=== PATIENT | female | born 1995 | race Caucasian/White ===

== ENCOUNTER → 2019-06-10 11:19 | Outpatient (CLI) | payer SELFPAY ==
--- NOTE | 2019-06-10 11:29 | US_ITS ---
STUDY: ULTRASOUND TRANSVAGINAL CLINICAL: Female, 23 years old. PRIOR D and amp;C MAY 2018 -- NO RIGHT OVARY/NOT SEEN DURING SX, -- HX ENDOMETRIOSIS -- CONCERNED FOR ENDO SHEDDING TECHNIQUE: Transvaginal COMPARISON: None. FINDINGS: Normal uterine size measuring 7.8 x 4.5 x 3.6 cm. there are no myometrial masses. The myometrium is heterogeneous in echogenicity. Normal endometrial thickness measuring 11 mm. The endometrium is heterogeneous in echogenicity. Scattered small cystic endometrial foci are noted. There is a cervical nabothian cyst. The right ovary was not visualized. Normal left ovary, measuring 4.7 x 4.5 x 3.6 cm. There is a left ovarian cyst measuring 2.5 x 2.7 x 1.9 cm. There is a small amount of free fluid in the cul-de-sac. Polycystic ovary disease: No. US/Transvaginal Non- IMPRESSION: Heterogeneous myometrium and endometrium. There are scattered small cystic endometrial foci. There is a cervical nabothian cyst. The right ovary was not visualized. There is a simple left ovarian cyst measuring 2.5 x 2.7 x 1.9 cm. Electronically Signed: Scott Townsend MD at 22:15 EDT , Service support ,
== END ==
PROVIDERS: PCP Physician Assistant
DX: R10.2 Pelvic and perineal pain (principal); N80.9 Endometriosis, unspecified
CPT/HCPCS: 76830

== ENCOUNTER → 2021-01-19 11:34 | Outpatient (CLI) | payer SELFPAY ==
--- NOTE | 2021-01-19 11:39 | US_ITS ---
STUDY: ULTRASOUND TRANSVAGINAL CLINICAL: Female, 25 years old. ENDOMETRiOSIS, pelvic pain, history of DTC LMP: 01/14/2021 TECHNIQUE: Transvaginal COMPARISON: 06/10/2019 FINDINGS: Normal uterine size measuring 6.8 x 4.2 x 3.6 cm in maximal craniocaudal dimension. There is heterogeneously echogenic regular tissue in the posterior uterus. Normal endometrial thickness measuring 5 mm. 0.7 x 0.4 x 0.5 cm heterogeneous area adjacent to the endometrium. There there is no fluid in the endometrial cavity. No IUD. Normal uterine cervix with a nabothian cyst. Right ovary is surgically absent. Normal left ovary, measuring 4 x 3.7 x 2.2 cm. There are multiple follicles without a dominant cyst. A complex cystic lesion with low-level echoes and nodular component measures 1.8 x 1.6 x 1.2 cm. There is mild free fluid in the pelvis about the left adnexa. Polycystic ovary disease: No. US/Transvaginal Non- IMPRESSION: 1.8 cm complex cystic lesion of the left ovary may represent a hemorrhagic cyst. Heterogeneous echogenic tissue along the posterior uterus may represent endometriosis. 0.7 cm heterogeneous area adjacent atrium may be related to prior DTC. Electronically Signed: Manpreet Kim MD at 6:41 EDT Tel , Service support ,
== END ==
PROVIDERS: PCP Physician Assistant
DX: R10.2 Pelvic and perineal pain (principal); N80.3 Endometriosis of pelvic peritoneum
CPT/HCPCS: 76830

== ENCOUNTER → 2021-09-26 | Outpatient (CLI) | payer SELFPAY ==
--- NOTE | 2021-09-26 13:29 | US_ITS ---
STUDY: ULTRASOUND TRANSVAGINAL CLINICAL: Female, 25 years old. N80.9 Endometriosis, check to see if any cysts have returned. Status post hysterectomy, right oophorectomy, and left popliteal cyst removal. TECHNIQUE: Transvaginal COMPARISON: None. FINDINGS: UTERUS: Surgically absent. OVARIES: Left ovary: 5.2 x 4.3 x 3.6 cm. Complex cystic structure 4.2 x 4 x 3.3 cm with internal echoes. Smaller complex cystic structure 2.1 x 1.2 x 1.6 cm. Vascular flow demonstrated. No findings to suggest ovarian torsion. Right ovary surgically absent. FREE FLUID: None. US/Transvaginal Non- IMPRESSION: Left ovarian complex cysts, largest is 4.2 cm, most likely hemorrhagic cysts. Follow-up imaging recommended to confirm resolution. Status post hysterectomy and right oophorectomy. Electronically Signed: Kirstin Izquierdo MD at 6:00 EDT ,
== END | disposition home or self-care (01) ==
PROVIDERS: PCP Physician Assistant
DX: N80.9 Endometriosis, unspecified (principal)
CPT/HCPCS: 76830

== ENCOUNTER → 2022-01-30 | Outpatient (CLI) | payer SELFPAY ==
--- NOTE | 2022-01-30 10:11 | US_ITS ---
STUDY: ULTRASOUND OF THE FEMALE PELVIS - COMPLETE REASON FOR EXAM: Female, 26 years old. OVARIAN LMP: The patient is status post hysterectomy. TECHNIQUE: Transvaginal TECHNICAL QUALITY: Adequate. COMPARISON: Comparison is made with prior study dated 09/26/2021. FINDINGS: There is evidence of prior hysterectomy. The right ovary is non-visualized. Patient is status post right nephrectomy. The left ovary is visualized. The left ovary measures 5.9 cm x 3.7 cm x 4.6 cm. There is a 3.5 cm x 3.6 cm x 3.6 cm complex solid and cystic mass in the ovary. There is no visualized left adnexal mass or complex lesion. There is normal arterial and normal venous vascularity. There is no fluid in the cul-de-sac. US/Transvaginal Non- IMPRESSION: Status post right oophorectomy and hysterectomy. 3.5 cm x 3.6 cm x 3.6 cm complex solid and cystic mass in the left ovary. Further follow-up recommended. Electronically Signed: Puma Fulton MD at 15:13 EDT ,
== END | disposition home or self-care (01) ==
PROVIDERS: PCP Physician Assistant
DX: N80.8 Other endometriosis (principal); R10.2 Pelvic and perineal pain
CPT/HCPCS: 76830

== ENCOUNTER → 2023-04-26 | Outpatient (CLI) | payer SELFPAY ==
--- NOTE | 2023-04-26 10:20 | US_ITS ---
INDICATION: NONINFLAMMATORY DISORDER OF VAGINA, UNSPECIFIED EXAMINATION: Ultrasound US Transvaginal Non-OB TECHNIQUE: Transabdominal and endovaginal sonographic images of the pelvis. Grayscale, spectral waveform, and color flow Doppler evaluation of the adnexa. COMPARISON: 01/30/2022 ultrasound. FINDINGS: UTERUS: Status post hysterectomy. RIGHT OVARY: Status post right oophorectomy. Small amount of right adnexal free fluid. LEFT OVARY: 2.9 cm complex cystic lesion, similar in appearance as compared to the prior ultrasound although overall size is decreased. Normal vascular flow demonstrated with color and pulsed-wave Doppler. FREE FLUID: No significant free fluid. US/Transvaginal Non- IMPRESSION: 1. Status post hysterectomy and right oophorectomy. 2. Small amount of right adnexal free fluid. 3. 2.9 cm complex cystic lesion in the left ovary. Recommend follow-up ultrasound in 6-12 weeks. Electronically Signed: Willy Springer DO at 2:00 EST ,
== END | disposition home or self-care (01) ==
DX: N80.9 Endometriosis, unspecified (principal); R10.2 Pelvic and perineal pain
CPT/HCPCS: 76830